=== PATIENT | male | born 1970 ===

== ENCOUNTER 2024-08-05 05:29 | Day surgery (SDC) | payer OTHER ==
[2024-08-05] MEDS ORDERED: CEFAZOLIN SODIUM 1,000 MG VIAL IV ONE (08:00)
[2024-08-05] MEDS ORDERED: MORPHINE SULFATE 4 MG/ML VIAL IV ONE ×2 (09:15→09:45)
== END 2024-08-05 11:05 | disposition home or self-care (01) ==
LOC: CIR.AMB 05:29
PROVIDERS: ATTEND Surgery
DX: K81.1 Chronic cholecystitis (principal)